=== PATIENT | female | born 1940 | race Caucasian/White ===

== ENCOUNTER 2022-09-22 10:10 | Outpatient (CLI) | payer MEDICARE ==
[~2022-09-22 10:10] MED LIST: Iopamidol 370 76% 100 ML VIAL ONE
== END 2022-09-22 10:11 | disposition home or self-care (01) ==
LOC: CSHCT 10:10
PROVIDERS: ATTEND Internal Medicine Cardiovascular Disease
DX: Z01.810 Encounter for preprocedural cardiovascular examination (principal); I48.0 Paroxysmal atrial fibrillation; Z79.01 Long term (current) use of anticoagulants; K92.1 Melena; J90 Pleural effusion, not elsewhere classified; Z01.812 Encounter for preprocedural laboratory examination
CPT/HCPCS: 71275; 80053; 81003; 85027; 85610; 85730; 86850; 86900; 86901; 93005; Q9967

== ENCOUNTER 2023-02-07 08:32 | Outpatient (CLI) | payer MEDICARE ==
[2023-02-07] MEDS ORDERED: Iopamidol 370 76% 100 ML VIAL ONE (09:46)
== END 2023-02-07 08:33 | disposition home or self-care (01) ==
LOC: CSHCT 08:32
PROVIDERS: ATTEND Internal Medicine Cardiovascular Disease
DX: I48.91 Unspecified atrial fibrillation (principal); Z95.818 Presence of other cardiac implants and grafts
CPT/HCPCS: 71275; 82565